=== PATIENT | female | born 1995 | race Caucasian/White ===

== ENCOUNTER 2018-06-10 15:24 | Emergency (ER) | payer OTHER ==
[~2018-06-10] VITALS: Ht 170.2 cm; Wt 87.5 kg
[2018-06-10] MEDS ORDERED: NKM (15:37)
[2018-06-10] MEDS ORDERED: Norco 5mg/325mg tab ORAL ONE (15:45)
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
[2018-06-10] MEDS ORDERED: NORCO 5-325 TA1 EACH ORAL (16:31)
[2018-06-10] MEDS ORDERED: IBUPROFEN600 MG ORAL (16:31)
[2018-06-10 16:53] VITALS: BP 118/74
--- NOTE | 2018-06-10 17:00 | Diagnostic Imaging Report ---
Indications: Knee pain Technique: Three views of the right knee Comparison: None Findings: No acute fractures. No dislocations. Joint spaces are preserved. No radiopaque foreign body. Normal mineralization. Impression: No acute process
== END 2018-06-10 16:54 | disposition home or self-care (01) ==
LOC: EMR 16:11
DX: M25.461 Effusion, right knee (principal); M25.561 Pain in right knee
CPT/HCPCS: 29505; 99283

== ENCOUNTER 2018-06-24 03:04 | Emergency (ER) | payer OTHER ==
[~2018-06-24] VITALS: Ht 170.2 cm; Wt 83.9 kg
[~2018-06-24 03:04] MED LIST: IBUPROFEN600 MG ORAL; NKM; NORCO 5-325 TA1 EACH ORAL
[2018-06-24] MEDS ORDERED: IBUPROFEN600 MG ORAL (03:24)
--- NOTE | 2018-06-24 03:24 | Emergency Room Report ---
History of Present Illness General Chief Complaint: Lower Extremity Injury Source: Patient Present Illness HPI This is a 23-year-old female who injured her knee about 2 weeks ago. She had x- ray done was negative. She came in for recheck because still hurting. Worse with certain movement. Worse with going upstairs. No fever chills but no nausea no vomiting. Pain is 7 out of 10. Denies any other complaint. No new injury. Allergies: Coded Allergies: No Known Allergies (Unverified , 06/10/18) Patient History Past Medical History: see triage record, old chart reviewed Past Surgical History: none Pertinent Family History: none Social History: Denies: smoking Last Menstrual Period: 06/03/18 Now: No : 0 Para: 0 Immunizations: other Reviewed Nursing Documentation: PMH: Agreed; PSxH: Agreed Nursing Documentation-PMH Past Medical History: No Stated History Review of Systems Eye: Denies: eye pain, blurred vision ENT: Denies: ear pain, nose congestion, throat swelling Respiratory: Denies: cough, shortness of breath Cardiovascular: Denies: chest pain, palpitations Gastrointestinal: Denies: abdominal pain, diarrhea, nausea, vomiting Musculoskeletal: Reports: joint pain Skin: Denies: rash Neurological: Denies: headache, numbness Endocrine: Denies: increased thirst, increased urine Hematologic/Lymphatic: Denies: easy bruising All Other Systems: negative except mentioned in HPI Physical Exam Vital Signs Date Time Temp Pulse Resp B/P (MAP) Pulse Ox O2 Delivery O2 Flow Rate FiO2 06/24/18 03:04 98.1 105 18 133/72 96 Room Air vitals yesy Sp02 EP Interpretation: reviewed, normal General Appearance: well appearing, no apparent distress, alert Head: normocephalic, atraumatic Eyes: bilateral eye PERRL, bilateral eye EOMI ENT: hearing grossly normal, normal pharynx Neck: full range of motion, supple, no meningismus Respiratory: chest non-tender, lungs clear, normal breath sounds Cardiovascular #1: regular rate, rhythm, no murmur Gastrointestinal: normal bowel sounds, non tender, no mass, no organomegaly, no bruit, non-distended Musculoskeletal: back normal, gait/station normal, normal range of motion, tender - Right knee: Tenderness over the medial aspect. Full range of motion. Mild effusion. Sensation normal. Knee stable. Psychiatric: mood/affect normal Skin: warm/dry Procedures Splinting Splinting : Consent: Verbal Location: right knee Pre-Made Type: CHRISTIAN wrap Pre-Proc Neuro Vasc Exam: normal Post-Proc Neuro Vasc Exam: normal Patient Tolerated: Well Complications: None Medical Decision Making Diagnostic Impression: Primary Impression: Right knee sprain Qualified Codes: S83.411A - Sprain of medial collateral ligament of right knee , initial encounter ER Course Patient presents with knee injury with a sprain. Most likely a medial collateral ligament. No evidence of any fracture. No need for new x-rays. We' ll discharge home. Last Vital Signs Date Time Temp Pulse Resp B/P (MAP) Pulse Ox O2 Delivery O2 Flow Rate FiO2 06/24/18 03:04 98.1 105 18 133/72 96 Room Air Status: unchanged Disposition: HOME, SELF-CARE Condition: Stable Scripts Ibuprofen* (MOTRIN*) 600 Mg Tablet 600 MG ORAL THREE TIMES A DAY, #30 TAB 0 Refills Prov: Urban Welch MD 06/24/18 Patient Instructions: Knee Sprain Additional Instructions: Follow-up with your doctor in 7 days. Christian wrap as needed. You may need an MRI if not better. Return if worse. Urban Welch MD Jun 24, 2018 03:24
[2018-06-24 03:30] VITALS: BP 133/72
== END 2018-06-24 03:32 | disposition home or self-care (01) ==
LOC: EMR 03:24
DX: S83.91XA Sprain of unspecified site of right knee, initial encounter (principal); X58.XXXA Exposure to other specified factors, initial encounter; Y92.9 Unspecified place or not applicable
CPT/HCPCS: 99283

== ENCOUNTER 2019-08-26 07:00 | Emergency (ER) | payer OTHER ==
[~2019-08-26] VITALS: Ht 167.6 cm; Wt 81.6 kg
[2019-08-26 07:12] VITALS: BP 124/78
--- NOTE | 2019-08-26 07:15 | NUR ---
ED Nurse Note: Patient brought in by family member c/o of accidental ingestion of unknown substance. Pt is A&O x2 (name, place), V/S stable with no s/s of acute distress noted, denies any pain at this time. Pt is lethargic, noncooperation, irritable unable to verbalize what substance was ingested. Per family member, pt called her and asked to be taken to the ER. Pt denies Hx of SI atempts in the past, per family member patient does not take any mental health or other prescirption meds.
--- NOTE | 2019-08-26 07:23 | Emergency Room Report ---
History of Present Illness General Chief Complaint: Overdose Source: Friend Present Illness HPI Patient is brought to the emergency department by a friend. She was altered this morning. Allegedly she took excessive amounts of her sleeping medication. The friend says that there is been no suicidal or homicidal ideation. She is not sure why this occurred. The patient is never been on psychiatric medication. Allegedly she had a miscarriage a month and a half ago. Friend says that she smokes but denies alcohol or drugs. The patient is not answering questions and is slightly combative not responding to attempts at de-escalation. See med course for further history. Allergies: Coded Allergies: No Known Allergies (Unverified , 06/10/18) Patient History Limited by: medical condition Past Medical History: see triage record Social History: Reports: drug use - see tox Social History Narrative lives with Mom Last Menstrual Period: unknown Reviewed Nursing Documentation: PMH: Agreed; PSxH: Agreed Nursing Documentation-PMH Past Medical History: No Stated History Review of Systems All Other Systems: limited Physical Exam Vital Signs Date Time Temp Pulse Resp B/P (MAP) Pulse Ox O2 Delivery O2 Flow Rate FiO2 08/26/19 07:05 98.1 72 18 124/78 (93) 100 Room Air General Appearance: lethargic - but combative - poorly follows commands Eyes: bilateral eye PERRL, bilateral eye Scleral Injection ENT: moist mucus membranes Neck: full range of motion Respiratory: chest non-tender, lungs clear, normal breath sounds Cardiovascular #1: regular rate, rhythm Cardiovascular #2: 2+ radial (R) Gastrointestinal: non tender, decreased bowel sounds Genitourinary: no CVA tenderness Musculoskeletal: back normal, normal range of motion, other - unable to stand Neurologic: motor strength/tone normal, DTRs symmetric, sensory intact, other - lethargic with eyes closed and not speaking Psychiatric: other - lethargic Skin: no rash, warm/dry Procedures Critical Care Time Critical Care Time Total Critical Care Time: 30 min bedside evaluation and treatment excludes procedures (EKG). Reason for critical care: overdose, combative requiring restraints and sedation , repeat evaluation for suicidality assessment Possible complications: hypotension, hypertension, [place], shock, arrhythmias, metabolic acidosis, end organ damage, respiratory failure. Interventions: restraints, sedation, CT, re-evaluation and discussion with friends Course: Patient presents with lethargy after alleged overdose of sleeping pills. Combative and requiring restraints and sedation. Repeat evaluation after sedation. Brain bleed excluded and electrolytes within normal limits. Patient reassessed after fully awake. Suicidality assessed. Confirmation of safety plan and safety discharge with patient and friends. Consultations: nursing staff, friends, radiology Performed by: Dr. Acevedo Tolerated well condition = serious Medical Decision Making Medical: Other Reaction to Intervention: No change Restraint Reassesment I, Go Acevedo MD, have personally evaluated this patient. Laboratory tests have been reviewed and addressed accordingly. The patient is deemed to present a danger to others and obtunded. This is based on the exam, history (provided by friend) and observed or reported behavior. Attempts for non-invasive measures have been considered and/or attempted, however, have been futile. It is in the best interest of the nursing staff, the patient, and others involved in this patient's care that behavioral restraints be applied. Patient evaluation reveals the following: lethargic and combative Diagnostic Impression: Primary Impression: Intentional drug overdose Qualified Codes: T50.902A - Poisoning by unspecified drugs, medicaments and biological substances, intentional self-harm, initial encounter Additional Impression: Reactive depression ER Course Patient presents with altered mental status with alleged sleeping medication excess. Differential includes overdose, electrolyte imbalance, brain bleed, suicide attempt amongst others. Evaluation will be with EKG, CT the head, labs. Due to the combativeness the patient needs to be restrained and sedated. Haldol and Benadryl have been ordered. EKG normal sinus rhythm with right axis deviation 820. Patient sedated and restraints discontinued. Labs unremarkable except for THC and amphetamines. CT head no bleed. When patient awake reevaluation undertaken. She says she took a handful of generic Remeron which she has for sleep aid. At that time she felt that she wanted to "check out". She denies suicidality at this time. She is depressed over the of her mother in February and a miscarriage a month and a half ago. She has not received any psychiatric or psychological help. She denies prior history of depression. Full review of systems negative aside from depression. Discussed with patient how amphetamines will temporarily make her feel better but ultimately worsened depression. Advised patient for seeking help with methamphetamine anonymous. The patient has attended Alcoholics Anonymous meetings a few times in the past and is familiar with this. She is agreeable to this help. Discussion of safety assessment and suicidality with patient and friends. All are comfortable with observing patient and feel she is low risk for harming herself at this time. Patient stable for outpatient observation and treatment. Laboratory Tests Test 08/26/19 07:55 08/26/19 09:15 White Blood Count 6.5 K/UL (4.8-10.8) Red Blood Count 4.91 M/UL (4.20-5.40) Hemoglobin 15.2 G/DL (12.0-16.0) Hematocrit 43.6 % (37.0-47.0) Mean Corpuscular Volume 89 FL (80-99) Mean Corpuscular Hemoglobin 31.0 PG (27.0-31.0) Mean Corpuscular Hemoglobin Concent 34.8 G/DL (32.0-36.0) Red Cell Distribution Width 10.8 % (11.6-14.8) L Platelet Count 264 K/UL (150-450) Mean Platelet Volume 6.7 FL (6.5-10.1) Neutrophils (%) (Auto) 40.6 % (45.0-75.0) L Lymphocytes (%) (Auto) 48.1 % (20.0-45.0) H Monocytes (%) (Auto) 8.7 % (1.0-10.0) Eosinophils (%) (Auto) 1.7 % (0.0-3.0) Basophils (%) (Auto) 0.9 % (0.0-2.0) Sodium Level 142 MMOL/L (136-145) Potassium Level 3.8 MMOL/L (3.5-5.1) Chloride Level 104 MMOL/L (98-107) Carbon Dioxide Level 26 MMOL/L (21-32) Anion Gap 12 mmol/L (5-15) Blood Urea Nitrogen 11 mg/dL (7-18) Creatinine 0.8 MG/DL (0.55-1.30) Estimate Glomerular Filtration Rate > 60 mL/min (>60) Glucose Level 94 MG/DL (74-106) Calcium Level 9.2 MG/DL (8.5-10.1) Total Bilirubin 0.4 MG/DL (0.2-1.0) Aspartate Amino Transferase (AST) 19 U/L (15-37) Alanine Aminotransferase (ALT) 26 U/L (12-78) Alkaline Phosphatase 66 U/L (46-116) Total Protein 8.3 G/DL (6.4-8.2) H Albumin 4.3 G/DL (3.4-5.0) Globulin 4.0 g/dL Albumin/Globulin Ratio 1.1 (1.0-2.7) Human Chorionic Gonadotropin, Qual Negative (NEGATIVE) Salicylates Level 2.7 ug/mL (2.8-20) L Acetaminophen Level < 2 MCG/ML (10-30) L Serum Alcohol < 3 mg/dL Urine Color Pale yellow Urine Appearance Clear Urine pH 5 (4.5-8.0) Urine Specific Odell 1.015 (1.005-1.035) Urine Protein Negative (NEGATIVE) Urine Glucose (UA) Negative (NEGATIVE) Urine Ketones Negative (NEGATIVE) Urine Blood 5+ (NEGATIVE) H Urine Nitrite Negative (NEGATIVE) Urine Bilirubin Negative (NEGATIVE) Urine Urobilinogen Normal MG/DL (0.0-1.0) Urine Leukocyte Esterase Negative (NEGATIVE) Urine RBC Tntc /HPF (0 - 2) H Urine WBC 0-2 /HPF (0 - 2) Urine Squamous Epithelial Cells Occasional /LPF Urine Bacteria Occasional /HPF (NONE) Urine Opiates Screen Negative (NEGATIVE) Urine Barbiturates Screen Negative (NEGATIVE) Phencyclidine (PCP) Screen Negative (NEGATIVE) Urine Amphetamines Screen Positive (NEGATIVE) H Urine Benzodiazepines Screen Negative (NEGATIVE) Urine Cocaine Screen Negative (NEGATIVE) Urine Marijuana (THC) Screen Positive (NEGATIVE) H EKG Diagnostic Results Rate: normal Rhythm: NSR ST Segments: no acute changes - Right axis deviation Rhythm Strip Diag. Results EP Interpretation: yes Rhythm: NSR, no PVC's, no ectopy CT/MRI/US Diagnostic Results CT/MRI/US Diagnostic Results : Imaging Test Ordered: head Impression no bleed Last Vital Signs Date Time Temp Pulse Resp B/P (MAP) Pulse Ox O2 Delivery O2 Flow Rate FiO2 08/26/19 15:35 98.0 77 14 128/74 100 Room Air Status: improved Disposition: HOME, SELF-CARE Condition: Improved Scripts Unable to Obtain Active Prescriptions or Reported Meds Go Acevedo MD Aug 26, 2019 07:23
[2019-08-26] MEDS ORDERED: Haloperidol 5mg/ml Inj IM ONE (07:30)
[2019-08-26] MEDS ORDERED: DiphenhydrAMINE 50mg/ml Inj IM ONE (07:30)
[2019-08-26 08:14] LABS: BASOPHILS % (AUTO) 0.9 % (0.0-2.0); EOSINOPHILS % (AUTO) 1.7 % (0.0-3.0); HEMATOCRIT 43.6 % (37.0-47.0); HEMOGLOBIN 15.2 G/DL (12.0-16.0); LYMPHOCYTES % (AUTO) 48.1 % (20.0-45.0); MEAN CORPUSCULAR VOLUME 89 FL (80-99); MONOCYTES % (AUTO) 8.7 % (1.0-10.0); NEUTROPHILS % (AUTO) 40.6 % (45.0-75.0); PLATELET COUNT 264 K/UL (150-450); RED BLOOD COUNT 4.91 M/UL (4.20-5.40); RED CELL DISTRIBUTION WIDTH 10.8 % (11.6-14.8); WHITE BLOOD COUNT 6.5 K/UL (4.8-10.8)
[2019-08-26 08:23] LABS: ANION GAP 12 mmol/L (5-15); BLOOD UREA NITROGEN 11 mg/dL (7-18); CALCIUM 9.2 MG/DL (8.5-10.1); CARBON DIOXIDE 26 MMOL/L (21-32); CHLORIDE 104 MMOL/L (98-107); CREATININE 0.8 MG/DL (0.55-1.30); POTASSIUM 3.8 MMOL/L (3.5-5.1); SODIUM 142 MMOL/L (136-145)
[2019-08-26 08:27] LABS: ALANINE AMINOTRANSFERASE 26 U/L (12-78); ALBUMIN 4.3 G/DL (3.4-5.0); ALBUMIN/GLOBULIN RATIO 1.1 (1.0-2.7); ALKALINE PHOSPHATASE 66 U/L (46-116); ASPARTATE AMINO TRANSFERASE 19 U/L (15-37); BILIRUBIN,TOTAL 0.4 MG/DL (0.2-1.0)
--- NOTE | 2019-08-26 08:50 | NUR ---
ED Nurse Note: Patient taken for CT.
[2019-08-26 09:12] VITALS: BP 132/80
[2019-08-26 09:45] LABS: APPEARANCE,URINE CLEAR; BILIRUBIN, URINE NEGATIVE (NEGATIVE); COLOR,URINE PALE YELLOW; GLUCOSE, URINE (UA) NEGATIVE (NEGATIVE); KETONES,URINE NEGATIVE (NEGATIVE); LEUKOCYTE ESTERASE ,URINE NEGATIVE (NEGATIVE); NITRITE,URINE NEGATIVE (NEGATIVE); PH,URINE 5 (4.5-8.0); PROTEIN,URINE NEGATIVE (NEGATIVE); UROBILINOGEN,URINE NORMAL MG/DL (0.0-1.0)
[2019-08-26 11:12] VITALS: BP 128/74
--- NOTE | 2019-08-26 12:00 | NUR ---
ED Nurse Note: Patient is in bed resting comfortably with her eyes closed. V/S stable and family member at bedside. Will continue to monitor.
--- NOTE | 2019-08-26 15:05 | Diagnostic Imaging Report ---
EXAM: CT Head Without Intravenous Contrast CLINICAL HISTORY: ALOC TECHNIQUE: Axial computed tomography images of the head/brain without intravenous contrast. Sagittal and coronal reformatted images were created and reviewed. CTDI is 53.40 mGy and DLP is 1072.20 mGy-cm. One or more of the following dose reduction techniques were used: automated exposure control, adjustment of the mA and/or kV according to patient size, use of iterative reconstruction technique. COMPARISON: No relevant prior studies available. FINDINGS: Brain: Unremarkable. No evidence of acute intracranial hemorrhage. No significant white matter disease. No edema. No mass effect or midline shift. Ventricles: Unremarkable. No ventriculomegaly. Bones/joints: Unremarkable. No depressed skull fracture. Soft tissues: Unremarkable. Sinuses: Unremarkable as visualized. No acute sinusitis. Mastoid air cells: Unremarkable as visualized. No mastoid effusion. IMPRESSION: Unremarkable noncontrast CT of the head/brain.
[2019-08-26 15:35] VITALS: BP 128/74
--- NOTE | 2019-08-26 15:36 | NUR ---
ER DISCHARGE NOTE: Patient is cleared to be discharged per ERMD, pt is aox4, on room air, with stable vital signs. pt was given dc and prescription instructions, pt was able to verbalize understanding, pt id band and iv site removed without complications. pt is able to ambulate with steady gait. pt took all belongings.
== END 2019-08-26 15:37 | disposition home or self-care (01) ==
LOC: EMR 09:50
DX: T50.902A Poisoning by unspecified drugs, medicaments and biological substances, intentional self-harm, initial encounter (principal); F32.9 Major depressive disorder, single episode, unspecified; X58.XXXA Exposure to other specified factors, initial encounter; Y93.9 Activity, unspecified; Y92.9 Unspecified place or not applicable
CPT/HCPCS: 36415; 70450; 80053; 80307; 81003; 84703; 85025; 93005; 96361; 96372; G0480; G0481; J1200; J1630; J7030; Z7502; 99291